=== PATIENT | male | born 1970 | race Caucasian/White ===

== ENCOUNTER 2018-01-10 09:09 | Emergency (ER) | payer MEDICAID, OTHER ==
[~2018-01-10] VITALS: Ht 172.7 cm; Wt 99.8 kg
[~2018-01-10 09:09] MED LIST: CYCL10TA9 PO; LORA1TAB PO; NAPR-243 PO; TRM50T PO
--- OUTSIDE RECORDS SUMMARY | 2018-01-10 09:13 | XMS REPORT ---
Author Author RUDY CASTANO [facility] Address [address] [place] [address] Care Team Providers Care Telemedicine Physician Name Role Phone RUDY CASTANO Unavailable PROBLEMS Type Condition ICD9-CM Code [id number] Code Onset Dates Condition Status SNOMED Code Problem Hypertriglyceridemia E78.1 Active 364002573 Problem Acute right-sided low back pain, with sciatica presence unspecified M54.5 Active 577956518 ALLERGIES No Information ENCOUNTERS Encounter Location Date Diagnosis [facility] [id number] [place] [address] [id number] Mar, [facility] [id number] [place] [address] [id number] Oct, Encounter for Department of Transportation (DOT) examination for driving license renewal Z02.4 [facility] [id number] [place] [address]67- 8099 20 Sep, 2016 Hypertriglyceridemia E78.1 [facility] [id number] [place] [address] [id number] 19 Sep, 2016 Hypertriglyceridemia E78.1 [facility] [id number] [place] [address] [id number] 13 Sep, 2016 High frequency hearing loss, unspecified laterality H91.90 and Encounter for wellness examination in adult Z00.00 [facility] [id number] [place] [address] [id number] 27 Sep, 2015 Acute right-sided low back pain, with sciatica presence unspecified M54.5 [facility] [id number] [place] [address] [id number] August, Dental caries K02.9 [facility] [id number] [place] [address] [id number] Jun, Encounter for dental examination Z01.20 [facility] [address] [id number] [place] [phone] Jun, Cough R05 and Nausea with vomiting, unspecified R11.2 [facility] [id number] [place] [phone] Oct, Perforated tympanic membrane 384.20 [facility] [id number] [place] [phone] Oct, Perforation of tympanic membrane 384.20 [facility] [address]00565[address] [address] Jul, [facility] [id number] [place] [address]- 3736 Jul, [facility] [id number] [place] [phone] Nov, [facility] [id number] [place] [address] 39046- 7936 Nov, [facility] [address]00565[address] [address] Oct, [facility] [id number] [place] [id number] Sep, [facility] [address]00565[address] [address] Sep, [facility] [id number] [place] [phone] Sep, [facility] [address] [address] 2546 Sep, [facility] [address] [facility] [id number] [place] [phone] Mar, [facility] [address] [id number] [address] 2546 Mar, [facility] [id number] [place] [id number] Feb, [facility] [id number] [place] [address] 79[address] 2546 Feb, [facility] [address] [id number] [place] [id number] Feb, [facility] [address] [facility] [id number] [place] [address] Feb, [facility] [address] [id number] [place] [id number] Nov, [facility] [address] [id number] [place] [phone] Nov, [facility] [address] [facility] [id number] [place] [address] Oct, [facility] [address] [id number] [place] [phone] Oct, [facility] [address] [id number] [place] [phone] August, [facility] [address] [id number] [place] [id number] Jul, [facility] [address] [id number] [place] [id number] Jun, [facility] [address] [id number] [place] [phone] May, [facility] [address] [id number] [place] [phone] Apr, [facility] [address] [id number] [place] [id number] Apr, [facility] [address] [id number] [place] [id number] Apr, [facility] [address] [id number] [place] [phone] Feb, [facility] [address] [facility] [id number] [address] 4[address] Feb, [facility] [address] [id number] [place] [phone] Jan, [facility] [address] [address] 0[address] Jan, [facility] [address] [id number] [address]- 2546 Mar, [facility] [address] [facility] [id number] [place] [address]- 2546 Jul, [facility] [address] [facility] [id number] [address]- 2546 Jan, [facility] [address] [facility] [id number] [address]- 2546 Oct, IMMUNIZATIONS No Known Immunizations SOCIAL HISTORY Never Assessed REASON FOR VISIT Refill request PLAN OF CARE VITAL SIGNS MEDICATIONS Medication Instructions Dosage Frequency Start Date End Date Duration Status Fenofibrate 145 MG Orally Once a day 1 tablet 24h Sep, 0 days Active RESULTS No Results PROCEDURES No Known procedures INSTRUCTIONS MEDICATIONS ADMINISTERED No Known Medications MEDICAL (GENERAL) HISTORY Type Description Date Medical History back pain Medical History Hyperlipidemia Surgical History fatty tumor on forehead removed
--- OUTSIDE RECORDS SUMMARY | 2018-01-10 09:13 | XMS REPORT ---
Author Author RUDY CASTANO [facility] Address [address] [place] [address] Care Team Providers Care Montessori Paraprofessional Name Role Phone RUDY CASTANO Unavailable PROBLEMS Type Condition ICD9-CM Code GDO89-PR Code Onset Dates Condition Status SNOMED Code Problem Hypertriglyceridemia E78.1 Active 107895316 Problem Acute right-sided low back pain, with sciatica presence unspecified M54.5 Active 940981242 ALLERGIES No Known Allergies ENCOUNTERS Encounter Location Date Diagnosis [facility] [id number] [place] [address] [id number] Mar, [id number] [place] [address] [id number] Oct, Encounter for Department of Transportation (DOT) examination for driving license renewal Z02.4 [facility] [id number] [place] [address] 24370- 5103 Sep, Hypertriglyceridemia E78.1 [facility] [id number] [place] [address] [id number] 19 Sep, 2016 Hypertriglyceridemia E78.1 [facility] [id number] [place] [address] [id number] 13 Sep, 2016 High frequency hearing loss, unspecified laterality H91.90 and Encounter for wellness examination in adult Z00.00 [facility] [id number] [place] [address] [id number] 27 Sep, 2015 Acute right-sided low back pain, with sciatica presence unspecified M54.5 [facility] [id number] [place] [address] [id number] August, Dental caries K02.9 [facility] [id number] [place] [address] [id number] Jun, Encounter for dental examination Z01.20 [facility] [address] [id number][place] [phone] Jun, Cough R05 and Nausea with vomiting, unspecified R11.2 [facility] [place] [id number], [place] [id number] Oct, Perforated tympanic membrane 384.20 [facility] [place] [id number], [place] [phone] Oct, Perforation of tympanic membrane 384.20 [facility] [address]00565100[place], [place] [address]- 118[address] Jul, [facility] [id number] [place] [address] 45401- 5236 Jul, [facility] [place] [id number], [place] [phone] Nov, [facility] [id number] [place] [address] 61362 2546 Nov, [facility] [address]00565100[place], [place] [address]- 2546 Oct, [facility] [place] [id number], [place] [phone] Sep, [facility] [address]00565100[place], [place] [address] 2546 Sep, [facility] [place] [id number], [place] [id number] Sep, [facility] [address]65100[place], [place] [address]- 2546 Sep, [facility] [place] [address] [facility] [id number], [place] [phone] Mar, [facility] [address]00565100[place], [place] [address]- 2546 Mar, [facility] [place] [address] [facility] [id number][place] [id number] Feb, [facility] [address]00565100[place], [place] [address]- 0864 Feb, [facility] [address] [id number] [place] [phone] Feb, [facility] [address] [facility] [id number], [place] [address]- 5395 Feb, [facility] [address] [id number] [place] [phone] Nov, [facility] [address] [id number] [place] [phone] Nov, [facility] [address] [facility] [id number], [place] [address]- 9784 Oct, [facility] [address] [id number] [place] [id number] Oct, [facility] [address] [id number] [place] [phone] August, [facility] [address] [id number] [place] [id number] Jul, [facility] [address] [id number] [place] [id number] Jun, [facility] [address] [id number] [place] [phone] May, [facility] [address] [id number] [place] [phone] Apr, [facility] [address] [id number] [place] [id number] Apr, [facility] [address] [id number] [place] [phone] Apr, [facility] [address] [id number] [place] [phone] Feb, [facility] [address] [facility] [id number], [place] [address]- 1811 Feb, [facility] [address] [id number], [place] [id number] Jan, [facility] [address]100[place], [place] [address]- 9939 Jan, [facility] [address] [id number] [address]- 8671 Mar, [facility] [address] [facility] [id number], [place] [address]- 2561 Jul, [facility] [address] [facility] [id number], [place] [address]- 0352 Jan, [facility] [address] [facility] [id number], [place] [address]- 8294 Oct, IMMUNIZATIONS No Known Immunizations SOCIAL HISTORY Never Assessed REASON FOR VISIT Referral for Hearing Loss [place] PLAN OF CARE Activity Details Follow Up 1 Week Reason:lab results VITAL SIGNS Height 70 in 2016-09-26 Weight 208.2 lbs 2016-09-26 Temperature 98.3 degrees Fahrenheit 2016-09-26 Heart Rate 82 bpm 2016-09-26 Respiratory Rate 16 2016-09-26 BMI 29.87 kg/m2 2016-09-26 Blood pressure systolic 120 mmHg 2016-09-26 Blood pressure diastolic 70 mmHg 2016-09-26 MEDICATIONS Unknown Medications RESULTS Name Result Date Reference Range TSH 2016-09-26 TSH 2.800 0.450-4.500 CBC 2016-09-26 WBC 9.7 3.4-10.8 RBC 5.05 4.14-5.80 Hemoglobin 15.1 12.6-17.7 Hematocrit 45.0 37.5-51.0 MCV 89 79-97 MCH 29.9 26.6-33.0 MCHC 33.6 31.5-35.7 RDW 13.1 12.3-15.4 Platelets 339 150-379 Neutrophils 58 Lymphs 32 Monocytes 6 Eos 4 Basos 0 Immature Cells Neutrophils (Absolute) 5.6 1.4-7.0 Lymphs (Absolute) 3.1 0.7-3.1 Monocytes(Absolute) 0.6 0.1-0.9 Eos (Absolute) 0.4 0.0-0.4 Baso (Absolute) 0.0 0.0-0.2 Immature Granulocytes 0 Immature Grans (Abs) 0.0 0.0-0.1 NRBC Hematology Comments: LIPID PANEL 2016-09-26 Cholesterol, Total 155 100-199 Triglycerides 332 0-149 HDL Cholesterol 38 >39 VLDL Cholesterol Abiel 66 5-40 LDL Cholesterol Calc 51 0-99 Comment: CMP 2016-09-26 Glucose, Serum 94 65-99 BUN 16 6-24 Creatinine, Serum 0.87 0.76-1.27 eGFR If NonAfricn Am 102 >59 eGFR If Africn Am 118 >59 BUN/Creatinine Ratio 18 9-20 Sodium, Serum 140 134-144 Potassium, Serum 4.3 3.5-5.2 Chloride, Serum 99 96-106 Carbon Dioxide, Total 26 18-29 Calcium, Serum 9.7 8.7-10.2 Protein, Total, Serum 7.0 6.0-8.5 Albumin, Serum 4.5 3.5-5.5 Globulin, Total 2.5 1.5-4.5 A/G Ratio 1.8 1.2-2.2 Bilirubin, Total 0.7 0.0-1.2 Alkaline Phosphatase, S 109 39-117 AST (SGOT) 20 0-40 ALT (SGPT) 33 0-44 PROCEDURES Procedure Date Ordered Result Body Site LAB [facility] BILL[facility] September 26, 2016 VENIPUNCT, ROUTINE* September 26, 2016 INSTRUCTIONS MEDICATIONS ADMINISTERED No Known Medications MEDICAL (GENERAL) HISTORY Type Description Date Medical History back pain Medical History Hyperlipidemia Surgical History fatty tumor on forehead removed
--- OUTSIDE RECORDS SUMMARY | 2018-01-10 09:13 | XMS REPORT ---
Author Author RUDY CASTANO [facility] Address [address] [place] [address] Care Team Providers Care Chick Room Supervisor Name Role Phone RUDY CASTANO Unavailable PROBLEMS Type Condition ICD9-CM Code RMH85-FE Code Onset Dates Condition Status SNOMED Code Problem Hypertriglyceridemia E78.1 Active 006970236 Problem Acute right-sided low back pain, with sciatica presence unspecified M54.5 Active 224157557 ALLERGIES No Known Allergies ENCOUNTERS Encounter Location Date Diagnosis [facility] [id number] [place] [address] [phone] Mar, [id number] [place] [address] [phone] Oct, Encounter for Department of Transportation (DOT) examination for driving license renewal Z02.4 [facility] [id number] [place] [address] 44865- 8727 Sep, Hypertriglyceridemia E78.1 [facility] [id number] [place] [address] [id number] 19 Sep, 2016 Hypertriglyceridemia E78.1 [facility] [id number] [place] [address] [id number] 13 Sep, 2016 High frequency hearing loss, unspecified laterality H91.90 and Encounter for wellness examination in adult Z00.00 [facility] [id number] [place] [address] [id number] 27 Sep, 2015 Acute right-sided low back pain, with sciatica presence unspecified M54.5 [facility] [id number] [place] [address] [id number] August, Dental caries K02.9 [facility] [id number] [place] [address] [id number] Jun, Encounter for dental examination Z01.[address] [facility] [address] [id number][place] [phone] Jun, Cough R05 and Nausea with vomiting, unspecified R11.2 [facility] [place] [id number], [place] [id number] Oct, Perforated tympanic membrane 384.20 [facility] [place] [id number], [place] [id number] Oct, Perforation of tympanic membrane 384.20 [facility] [address]00565100[place], [place] [address]- 4[address] Jul, [facility] [id number] [place] [address] 81529- 1776 Jul, [facility] [id number], [place] [phone] Nov, [facility] [id number] [place] [address] 55358 2546 Nov, [facility] [address]00565100[place], [place] [address]- 2546 Oct, [facility] [id number], [place] [id number] Sep, [facility] [address]00565100[place], [place] [address] 2546 Sep, [facility] [id number], [place] [id number] Sep, [facility] [address]00565100[place], [place] [address]- 2546 Sep, [facility] [address] [facility] [id number], [place] [phone] Mar, [facility] [address]00565100[place], [place] [address]- 2546 Mar, [facility] [address] [facility] [id number], [place] [phone] Feb, [facility] [address]00565100[place], [place] [address]- 2954 Feb, [facility] [address] [id number] [place] [id number] Feb, [facility] [address] [facility] [id number], [place] [address]- 0[address] Feb, [facility] [address] [id number] [place] [id number] Nov, [facility] [address] [id number] [place] [id number] Nov, [facility] [address] [facility] [id number] [address]- 5370 Oct, [facility] [address] [id number] [place] [id number] Oct, [facility] [address] [id number] [place] [id number] August, [facility] [address] [id number] [place] [id number] Jul, [facility] [address] [id number] [place] [id number] Jun, [facility] [address] [id number] [place] [id number] May, [facility] [address] [id number] [place] [id number] Apr, [facility] [address] [id number] [place] [id number] Apr, [facility] [address] [id number] [place] [id number] Apr, [facility] [address] [id number] [place] [id number] Feb, [facility] [address] [facility] [id number], [place] [address]- 7895 Feb, [facility] [address] [id number], [place] [phone] Jan, [facility] [address]100[place], [place] [address]- 6882 Jan, [facility] [address] [id number] [address]- 2546 Mar, [facility] [address] [facility] [id number][place] [address]- 1616 Jul, [facility] [address] [facility] [id number] [address]- 8902 Jan, [facility] [address] [facility] [id number], [place] [address]- 3762 Oct, IMMUNIZATIONS No Known Immunizations SOCIAL HISTORY Never Assessed REASON FOR VISIT Lab Results Laxmi RAMIREZ PLAN OF CARE Activity Details Follow Up prn Reason: VITAL SIGNS Height 70 in 2016-10-02 Weight 211.8 lbs 2016-10-02 Temperature 97.9 degrees Fahrenheit 2016-10-02 Heart Rate 68 bpm 2016-10-02 Respiratory Rate 18 2016-10-02 BMI 30.39 kg/m2 2016-10-02 Blood pressure systolic 116 mmHg 2016-10-02 Blood pressure diastolic 78 mmHg 2016-10-02 MEDICATIONS Medication Instructions Dosage Frequency Start Date End Date Duration Status Gemfibrozil 600 MG Orally Twice a day 1 tablet 12h Sep, 0 days Active RESULTS No Results PROCEDURES No Known procedures INSTRUCTIONS MEDICATIONS ADMINISTERED No Known Medications MEDICAL (GENERAL) HISTORY Type Description Date Medical History back pain Medical History Hyperlipidemia Surgical History fatty tumor on forehead removed
--- OUTSIDE RECORDS SUMMARY | 2018-01-10 09:13 | XMS REPORT ---
Author Author YENNY MURRAY [facility] KHANNA Address [address] [place] [address] Care Team Providers [employer] Set Up Technician Name Role Phone YENNY MURRAY Unavailable PROBLEMS Type Condition ICD9-CM Code HYO21-YK Code Onset Dates Condition Status SNOMED Code Problem Hypertriglyceridemia E78.1 Active 094633619 Problem Acute right-sided low back pain, with sciatica presence unspecified M54.5 Active [id number] ALLERGIES No Known Allergies ENCOUNTERS Encounter Location Date Diagnosis [facility] [id number] [place] [id number] Mar, [facility] [address] [id number] [id number] Oct, Encounter for Department of Transportation (DOT) examination for driving license renewal Z02.4 [facility] [id number] [place] [phone] Sep, Hypertriglyceridemia E78.1 [facility] [id number] [place] [address] [id number] 19 Sep, 2016 Hypertriglyceridemia E78.1 [facility] [id number] [place] [address] [id number] 13 Sep, 2016 High frequency hearing loss, unspecified laterality H91.90 and Encounter for wellness examination in adult Z00.00 [facility] [id number] [place] [address] [id number] 27 Sep, 2015 Acute right-sided low back pain, with sciatica presence unspecified M54.5 [facility] [id number] [place] [address] [id number] August, Dental caries K02.9 [facility] [id number] [place] [address] [id number] Jun, Encounter for dental examination Z01.20 [facility] [id number] [phone] Jun, Cough R05 and Nausea with vomiting, unspecified R11.2 [facility] [id number] [phone] Oct, Perforated tympanic membrane 384.20 [facility] [id number] [place] [address] [id number] Oct, Perforation of tympanic membrane 384.20 [facility] [address] [address] Jul, [facility] [id number] [place] [phone] Jul, [facility] [id number][place] [id number] Nov, [facility] [id number] [place] [phone] Nov, [facility] [id number] [place] [phone] Oct, [facility] [id number] [place] [address] [id number] Sep, [facility] [address] [address] Sep, [facility] [id number] [id number] Sep, [facility] [id number] [place] [phone] Sep, [facility] [id number] [id number] Mar, [facility] [id number] [place] [phone] Mar, [facility] [id number] [phone] Feb, [facility] [id number] [place] [phone] Feb, [facility] [address] [id number] [place] [phone] Feb, [facility] [address] [facility] [id number] [address] Feb, [facility] [address] [id number] [place] [phone] Nov, [facility] [address] [id number] [place] [phone] Nov, [facility] [address] [facility] [id number] [address] Oct, [facility] [address] [id number] [place] [phone] Oct, [facility] [address] [id number] [place] [phone] August, [facility] [address] [id number] [place] [phone] Jul, [facility] [address] [id number] [place] [id number] Jun, [facility] [address] [id number] [place] [phone] May, [facility] [address] [id number] [place] [phone] Apr, [facility] [address] [id number] [place] [phone] Apr, [facility] [address] [id number] [place] [phone] Apr, [facility] [address] [id number] [place] [phone] Feb, [facility] [address] [facility] [id number], [place] [address] Feb, [facility] [address] [id number] [place] [phone] Jan, [facility] [address]65100[place] [phone] Jan, [facility] [address] [id number] [place] [address] Mar, [facility] [address] [facility] [id number], [place] [address] Jul, [facility] [address] [id number] [address] Jan, [facility] [address] [facility] [id number], [place] [address] Oct, IMMUNIZATIONS No Known Immunizations SOCIAL HISTORY Never Assessed 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 PLAN OF CARE Activity Details Follow Up prn Reason: VITAL SIGNS Height 70 in 2016-11-09 Weight 214.2 lbs 2016-11-09 Temperature 98.0 degrees Fahrenheit 2016-11-09 Heart Rate 74 bpm 2016-11-09 Respiratory Rate 18 2016-11-09 BMI 30.73 kg/m2 2016-11-09 Blood pressure systolic 136 mmHg 2016-11-09 Blood pressure diastolic 80 mmHg 2016-11-09 MEDICATIONS Medication Instructions Dosage Frequency Start Date End Date Duration Status Fenofibrate 145 MG Orally Once a day 1 tablet 24h Sep, 0 days Active RESULTS Name Result Date Reference Range MICROALBUMIN, URINE (IN HOUSE) 2016-11-09 MICROALBUMIN NORMAL Lot # [id number] Exp date 12/01 Clarity Clear Color Dark Yellow ALB 30mg/L CRE 200mg/dl A:C (IN HOUSE) <30mg/g Control Control Lot # Exp URINE DRUG SCREEN (IN HOUSE) 2016-11-09 Lot # [id number] Exp date 10/31 Control + COCAINE NEG AMPH NEG MTD NEG THC NEG OPIATE NEG BENZO NEG PCP NEG BAR NEG OXY NEG MAMP NEG TCA NEG BUP MDMA NEG UA LONG DIP (IN HOUSE) 2016-11-09 Lot # [id number] Exp date 05/03 Clarity Clear Color Dark Yellow Odor No GLU NEG MARKEL NEG KET NEG SG >=1.030 BLO NEG pH 6.5 Protein NEG URO 0.2 NIT NEG HANNY NEG Lot # Exp PROCEDURES Procedure Date Ordered Result Body Site LAB NOT BILLED BY [facility] November 09, 2016 URINALYSIS, AUTO, W/O SCOPE November 09, 2016 MICROALBUMIN, SEMIQUANT November 09, 2016 INSTRUCTIONS MEDICATIONS ADMINISTERED No Known Medications MEDICAL (GENERAL) HISTORY Type Description Date Medical History back pain Medical History Hyperlipidemia Surgical History fatty tumor on forehead removed
--- OUTSIDE RECORDS SUMMARY | 2018-01-10 09:14 | XMS REPORT | Continuity of Care Document ---
Author Author [facility] Address Unknown Phone Unavailable Allergies There is no data. Medications There is no data. Problems Date Dx Coded Attending Type Code Diagnosis Diagnosed By 10/23/2008 599.70 HEMATURIA, UNSPECIFIED 10/23/2008 V70.4 EXAMINATION FOR MEDICOLEGAL REASONS 10/23/2008 599.70 HEMATURIA, UNSPECIFIED 10/23/2008 V70.4 EXAMINATION FOR MEDICOLEGAL REASONS 10/23/2008 599.70 HEMATURIA, UNSPECIFIED 10/23/2008 V70.4 EXAMINATION FOR MEDICOLEGAL REASONS 10/23/2008 599.70 HEMATURIA, UNSPECIFIED 10/23/2008 V70.4 EXAMINATION FOR MEDICOLEGAL REASONS 10/23/2008 599.70 HEMATURIA, UNSPECIFIED 10/23/2008 V70.4 EXAMINATION FOR MEDICOLEGAL REASONS 10/23/2008 599.70 HEMATURIA, UNSPECIFIED 10/23/2008 V70.4 EXAMINATION FOR MEDICOLEGAL REASONS 10/23/2008 599.70 HEMATURIA, UNSPECIFIED 10/23/2008 V70.4 EXAMINATION FOR MEDICOLEGAL REASONS 10/23/2008 599.70 HEMATURIA, UNSPECIFIED 10/23/2008 V70.4 EXAMINATION FOR MEDICOLEGAL REASONS 10/23/2008 SULLIVAN DO, FAUZIA K 599.70 HEMATURIA, UNSPECIFIED 10/23/2008 SULLIVAN DO, FAUZIA K V70.4 EXAMINATION FOR MEDICOLEGAL REASONS 10/23/2008 SULLIVAN DO, FAUZIA K 599.70 HEMATURIA, UNSPECIFIED 10/23/2008 SULLIVAN DO, FAUZIA K V70.4 EXAMINATION FOR MEDICOLEGAL REASONS 10/23/2008 RUDY CASTANO APRN 599.70 HEMATURIA, UNSPECIFIED 10/23/2008 RUDY CASTANO APRN V70.4 EXAMINATION FOR MEDICOLEGAL REASONS 10/23/2008 SERENA KLEIN 599.70 HEMATURIA, UNSPECIFIED 10/23/2008 SERENA KLEIN V70.4 EXAMINATION FOR MEDICOLEGAL REASONS 02/11/2009 477.9 RHINITIS 02/11/2009 780.60 FEVER, UNSPECIFIED 02/11/2009 780.79 MALAISE AND FATIGUE 02/11/2009 477.9 RHINITIS 02/11/2009 780.60 FEVER, UNSPECIFIED 02/11/2009 780.79 MALAISE AND FATIGUE 02/11/2009 477.9 RHINITIS 02/11/2009 780.60 FEVER, UNSPECIFIED 02/11/2009 780.79 MALAISE AND FATIGUE 02/11/2009 477.9 RHINITIS 02/11/2009 780.60 FEVER, UNSPECIFIED 02/11/2009 780.79 MALAISE AND FATIGUE 02/11/2009 477.9 RHINITIS 02/11/2009 780.60 FEVER, UNSPECIFIED 02/11/2009 780.79 MALAISE AND FATIGUE 02/11/2009 477.9 RHINITIS 02/11/2009 780.60 FEVER, UNSPECIFIED 02/11/2009 780.79 MALAISE AND FATIGUE 02/11/2009 477.9 RHINITIS 02/11/2009 780.60 FEVER, UNSPECIFIED 02/11/2009 780.79 MALAISE AND FATIGUE 02/11/2009 477.9 RHINITIS 02/11/2009 780.60 FEVER, UNSPECIFIED 02/11/2009 780.79 MALAISE AND FATIGUE 02/11/2009 SULLIVAN DO, FAUZIA K 477.9 RHINITIS 02/11/2009 SULLIVAN DO, FAUZIA K 780.60 FEVER, UNSPECIFIED 02/11/2009 SULLIVAN DO, FAUZIA K 780.79 MALAISE AND FATIGUE 02/11/2009 SULLIVAN DO, FAUZIA K 477.9 RHINITIS 02/11/2009 SULLIVAN DO, FAUZIA K 780.60 FEVER, UNSPECIFIED 02/11/2009 SULLIVAN DO, FAUZIA K 780.79 MALAISE AND FATIGUE 02/11/2009 RUDY CASTANO APRN 477.9 RHINITIS 02/11/2009 RUDY CASTANO APRN 780.60 FEVER, UNSPECIFIED 02/11/2009 RUDY CASTANO APRN 780.79 MALAISE AND FATIGUE 02/11/2009 FARNAZ MOTLEY, SERENA Kay 477.9 RHINITIS 02/11/2009 FARNAZ MOTLEY, SERENA Kay 780.60 FEVER, UNSPECIFIED 02/11/2009 FARNAZ MOTLEY, SERENA Kay 780.79 MALAISE AND FATIGUE 07/30/2009 389.9 UNSPECIFIED HEARING LOSS 07/30/2009 389.9 UNSPECIFIED HEARING LOSS 07/30/2009 389.9 UNSPECIFIED HEARING LOSS 07/30/2009 389.9 UNSPECIFIED HEARING LOSS 07/30/2009 389.9 UNSPECIFIED HEARING LOSS 07/30/2009 389.9 UNSPECIFIED HEARING LOSS 07/30/2009 389.9 UNSPECIFIED HEARING LOSS 07/30/2009 389.9 UNSPECIFIED HEARING LOSS 07/30/2009 SULLIVAN DOYULIYAA K 389.9 UNSPECIFIED HEARING LOSS 07/30/2009 SULLIVAN DOYULIYAA K 389.9 UNSPECIFIED HEARING LOSS 07/30/2009 RUDY CASTANO APRN 389.9 UNSPECIFIED HEARING LOSS 07/30/2009 FARNAZ MOTLEY, SERENA Kay 389.9 UNSPECIFIED HEARING LOSS 08/17/2009 789.04 ABDOMINAL PAIN, LEFT LOWER QUADRANT 08/17/2009 789.04 ABDOMINAL PAIN, LEFT LOWER QUADRANT 08/17/2009 789.04 ABDOMINAL PAIN, LEFT LOWER QUADRANT 08/17/2009 789.04 ABDOMINAL PAIN, LEFT LOWER QUADRANT 08/17/2009 789.04 ABDOMINAL PAIN, LEFT LOWER QUADRANT 08/17/2009 789.04 ABDOMINAL PAIN, LEFT LOWER QUADRANT 08/17/2009 789.04 ABDOMINAL PAIN, LEFT LOWER QUADRANT 08/17/2009 789.04 ABDOMINAL PAIN, LEFT LOWER QUADRANT 08/17/2009 SULLIVAN DOYULIYAA K 789.04 ABDOMINAL PAIN, LEFT LOWER QUADRANT 08/17/2009 SULLIVAN DOYULIYAA K 789.04 ABDOMINAL PAIN, LEFT LOWER QUADRANT 08/17/2009 RUDY CASTANO APRN 789.04 ABDOMINAL PAIN, LEFT LOWER QUADRANT 08/17/2009 FARNAZ APARICIO, SERENA Kay 789.04 ABDOMINAL PAIN, LEFT LOWER QUADRANT 04/07/2011 V70.5 PREEMPLOYMENT/ PRESCHOOL EXAM 04/07/2011 V70.5 PREEMPLOYMENT/ PRESCHOOL EXAM 04/07/2011 V70.5 PREEMPLOYMENT/ PRESCHOOL EXAM 04/07/2011 V70.5 PREEMPLOYMENT/ PRESCHOOL EXAM 04/07/2011 V70.5 PREEMPLOYMENT/ PRESCHOOL EXAM 04/07/2011 V70.5 PREEMPLOYMENT/ PRESCHOOL EXAM 04/07/2011 V70.5 PREEMPLOYMENT/ PRESCHOOL EXAM 04/07/2011 V70.5 PREEMPLOYMENT/ PRESCHOOL EXAM 04/07/2011 FAUZIA SULLIVAN DO V70.5 PREEMPLOYMENT/PRESCHOOL EXAM 04/07/2011 FAUZIA SULLIVAN DO V70.5 PREEMPLOYMENT/PRESCHOOL EXAM 04/07/2011 RUDY CASTANO APRN V70.5 PREEMPLOYMENT/PRESCHOOL EXAM 04/07/2011 SERENA KLEIN V70.5 PREEMPLOYMENT/PRESCHOOL EXAM 02/14/2012 311 DEPRESSIVE DISORDER NOT ELSEWHERE CLASSIFIED 02/14/2012 311 DEPRESSIVE DISORDER NOT ELSEWHERE CLASSIFIED 02/14/2012 311 DEPRESSIVE DISORDER NOT ELSEWHERE CLASSIFIED 02/14/2012 311 DEPRESSIVE DISORDER NOT ELSEWHERE CLASSIFIED 02/14/2012 311 DEPRESSIVE DISORDER NOT ELSEWHERE CLASSIFIED 02/14/2012 311 DEPRESSIVE DISORDER NOT ELSEWHERE CLASSIFIED 02/14/2012 311 DEPRESSIVE DISORDER NOT ELSEWHERE CLASSIFIED 02/14/2012 311 DEPRESSIVE DISORDER NOT ELSEWHERE CLASSIFIED 02/14/2012 FAUZIA SULLIVAN DO K 311 DEPRESSIVE DISORDER NOT ELSEWHERE CLASSIFIED 02/14/2012 FAUZIA SULLIVAN DO 311 DEPRESSIVE DISORDER NOT ELSEWHERE CLASSIFIED 02/14/2012 RUDY CASTANO APRN 311 DEPRESSIVE DISORDER NOT ELSEWHERE CLASSIFIED 02/14/2012 SERENA KLEIN 311 DEPRESSIVE DISORDER NOT ELSEWHERE CLASSIFIED 11/22/2012 916.4 INSECT BITE NONVENOMOUS OF HIP THIGH LEG AND ANKLE WITHOUT INFECTION 11/22/2012 FAUZIA SULLIVAN DO 916.4 INSECT BITE NONVENOMOUS OF HIP THIGH LEG AND ANKLE WITHOUT INFECTION 11/22/2012 FAUZIA SULLIVAN DO 916.4 INSECT BITE NONVENOMOUS OF HIP THIGH LEG AND ANKLE WITHOUT INFECTION 11/22/2012 RUDY CASTANO APRN 916.4 INSECT BITE NONVENOMOUS OF HIP THIGH LEG AND ANKLE WITHOUT INFECTION 11/22/2012 SERENA KLEIN 916.4 INSECT BITE NONVENOMOUS OF HIP THIGH LEG AND ANKLE WITHOUT INFECTION 10/06/2013 SERENA KLEIN 312.30 I IMPULSE CONTROL DISORDER NOS Procedures Code Description [place] [address] A1C (IN-HOUSE) 07/01/2012 35690 (RAST) Radio-Allergen- Sorbent Test (put in # of units) 07/01/2012 24771 UA LONG DIP 03/04/2013 89561 UA LONG DIP 03/24/2013 16713 PSYCH DIAGNOSTIC EVALUATION 10/06/2013 Results There is no data. Encounters ACCT No. Visit Date/Time Discharge Status Pt. Type Provider Facility Loc./Unit Complaint [id number] 10/06/2013 09:43:00 10/06/2013 23:59:59 CLS Outpatient SERENA KLEIN [id number] 09/17/2013 15:04:00 09/17/2013 23:59:59 CLS Outpatient RUDY CASTANO APRN [id number] 03/24/2013 17:56:00 03/24/2013 23:59:59 CLS Outpatient FAUZIA SULLIVAN DO [id number] 03/04/2013 16:20:00 03/04/2013 23:59:59 CLS Outpatient FAUZIA SULLIVAN DO [id number] 07/01/2012 17:47:00 07/01/2012 23:59:59 CLS Outpatient [id number] 06/03/2012 16:59:00 06/03/2012 23:59:59 CLS Outpatient [id number] 05/06/2012 18:15:00 05/06/2012 23:59:59 CLS Outpatient [id number] 04/17/2012 16:00:00 04/17/2012 23:59:59 CLS Outpatient [id number] 03/15/2012 10:42:00 03/15/2012 23:59:59 CLS Outpatient [id number] 02/14/2012 10:28:00 02/14/2012 23:59:59 CLS Outpatient [id number] 11/22/2012 14:08:00 Document Registration [id number] 07/29/2012 17:55:00 Document Registration
[2018-01-10 11:58] VITALS: BP 120/89
== END 2018-01-10 11:58 | disposition left against medical advice (07) ==
LOC: EDUNIT# 09:09 → ER 09:09
DX: M54.5 Low back pain (principal); G89.29 Other chronic pain; F32.9 Major depressive disorder, single episode, unspecified; F17.210 Nicotine dependence, cigarettes, uncomplicated
CPT/HCPCS: 99281

== ENCOUNTER → 2021-01-03 | Outpatient (CLI) | payer MEDICAID ==
--- NOTE | 2021-01-03 14:45 | Diagnostic Imaging Report ---
PROCEDURE: MR imaging of the brain without contrast. TECHNIQUE: Multiplanar, multisequence MR imaging of the brain was performed without contrast. INDICATION: Neuropathy of left upper extremity. Memory loss issues. COMPARISON: None. FINDINGS: No abnormal intracranial signal. No restricted water diffusion. No hemosiderin deposition. Normal morphology including the major midline structures, sella, posterior fossa and cerebellar pontine angle. No hydrocephalus or extra-axial fluid collections. Normal intracranial flow voids. Incidental Thornwaldt cyst. The orbits are negative. Mild mucosal thickening throughout the paranasal sinuses. The mastoids are clear. Normal bone marrow signal. IMPRESSION: Normal MRI of the brain without contrast. No acute findings. Dictated by: Dictated on workstation # [id number]
== END ==
LOC: RAD 14:45
PROVIDERS: ATTEND Physician Assistant
DX: G56.92 Unspecified mononeuropathy of left upper limb (principal); R41.3 Other amnesia
CPT/HCPCS: 70551

== ENCOUNTER → 2021-06-14 | Outpatient (CLI) | payer MEDICAID ==
--- NOTE | 2021-06-14 08:45 | Diagnostic Imaging Report ---
PROCEDURE: MRI lumbar spine without contrast. TECHNIQUE: Multiplanar, multisequence MRI of the lumbar spine was performed without contrast. INDICATION: Low back pain. COMPARISON: None. FINDINGS: 5 lumbar type vertebral bodies are visualized with the last well-formed disc space designated L5-S1. No acute fracture or dislocation is seen in the lumbar spine. Alignment is anatomic. Vertebral body heights and disc spaces are well-maintained. Modic type II endplate degenerative changes are present at the L3-L4 level. The conus terminates at the L1 level. No masses are seen associated with the conus or nerve roots of the cauda equina. No epidural collections are identified. 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 Multilevel degenerative changes are seen in the lumbar spine with disc bulges, facet hypertrophy, and buckling of the ligamentum flavum. No significant spinal canal stenosis is present in the lumbar spine. There is [id number] bilateral foraminal narrowing at the L4-L5 level. No high-grade foraminal stenosis is seen in the lumbar spine. Paravertebral soft tissues are unremarkable. IMPRESSION: 1. No acute fracture or dislocation in the lumbar spine. 2. Multilevel degenerative changes in the lumbar spine, greatest at L4-L5. No high-grade spinal canal or foraminal stenosis. 3. Modic type II endplate degenerative changes at the L3-L4 level. Dictated by: Dictated on workstation # [id number]
--- NOTE | 2021-06-14 08:59 | Diagnostic Imaging Report ---
PROCEDURE: MR imaging cervical spine without contrast. TECHNIQUE: Multiplanar, multisequence MR imaging of the cervical spine was performed without contrast. INDICATION: Neck pain. FINDINGS: The cervical vertebral statures are normal and the alignment anatomic. The marrow signal intensity is normal. The cervical spinal cord has normal volume, morphology, and signal intensity. Incidentally noted is a subcentimeter Tornwaldt's cyst at the back wall of the nasopharynx. No suspicious paravertebral mass, hemorrhage, or fluid collection. No acute appearing pathology. The craniocervical relationship and the C1-C2 and C2-C3 levels and discs appear normal. There is no stenosis. C3-C4: There is very slight disc desiccation, stature loss, and mild diffuse generalized bulge. This is asymmetric greater left where there is mild left foraminal narrowing. The spinal canal and right foramen are widely patent. C4-C5: Disc material and endplate osteophytes are asymmetric to the right where there is posterolateral mild right broad-based bulging. This results in no substantial canal stenosis and the right neural foramen is perhaps slightly narrowed with no compression of the exiting nerve. C5-C6: Disc desiccation, stature loss, circumferential bulge, and endplate osteophytes are present. Disc material and uncovertebral joint spurring are asymmetric greater right. Osteophyte/disc material indents the right ventral thecal sac. The canal stenosis is mild and there is mild right neuroforaminal narrowing. C6-C7: This level and disc are unremarkable. There is no stenosis. C7-T1: This level and disc are unremarkable. There is no stenosis. IMPRESSION: Mild disc desiccation, bulges, and uncovertebral joint spurring result in mild degrees of multilevel foraminal stenoses. Normal spinal cord. Normal alignment. No acute bony pathology. Dictated by: Dictated on workstation # [id number]
== END ==
LOC: RAD 08:00
PROVIDERS: ATTEND Physician Assistant
DX: M47.816 Spondylosis without myelopathy or radiculopathy, lumbar region (principal); M51.36 Other intervertebral disc degeneration, lumbar region; G56.91 Unspecified mononeuropathy of right upper limb; G56.92 Unspecified mononeuropathy of left upper limb; M48.02 Spinal stenosis, cervical region; M50.20 Other cervical disc displacement, unspecified cervical region
CPT/HCPCS: 72141; 72148